=== PATIENT | female | born 1960 | race Caucasian/White ===

== ENCOUNTER 2016-08-25 10:27 | Emergency (ER) | payer OTHER ==
[~2016-08-25] VITALS: Ht 170.2 cm; Wt 58.1 kg
--- NOTE | 2016-08-25 11:16 | ED HEADACHE COMPLAINT ---
History of Present Illness General Chief Complaint: Headache Stated Complaint: HEADACHE Source: patient, old records Exam Limitations: no limitations Vital Signs & Intake/Output Vital Signs & Intake/Output Vital Signs Date Time Temp Pulse Resp B/P Pulse O2 O2 Flow FiO2 Ox Delivery Rate 08/25 1245 Room Air Room Air 08/25 1236 97.7 60 18 132/81 99 Room Air 08/25 1032 97.1 78 16 146/86 100 Room Air Allergies Coded Allergies: Penicillins (UNKNOWN 08/25/16) Reconcile Medications Mometasone Furoate (Nasonex) 50 MCG SPRAY.PUMP 2 SPRAY NASB DAILY SINUSITIS Triage Note: PT STATES SHE WAS ON HER INVERSTION TABLE AND SHE SUDDENLY GOT A SENSATION AND PAIN INTO HER FH AND IN HER EYES. PT STATES SHE HAS NEVER HAD ANYTHING LIKE THAT BEFORE. PT STATES SHE STILL HAS TINGLING OVER HER RIGHT EYE. Triage Nurses Notes Reviewed? yes Onset: Abrupt Duration: hour(s): (1), better, intermittent, waxing and waning Timing: recent history Quality/Severity: moderate, achy Severity Numbers: 4 Head Injury Location: frontal No Modifying Factors: none Associated Symptoms: DENIES HPI: 55-year-old female with no medical history presents complaining of a sudden onset of a 9 out of 10 frontal headache that is radiating behind her right eye that came on after she was lying inverted on her inversion table for a few minutes earlier today. She states that she has uses before without developing similar headaches. There is been no recent fall or head trauma or loss of consciousness. She denies any vision changes photophobia diplopia. No fever no chills no change in her mental status no neck or back pain. She is not taken anything for her headache which she states has since improved and is now 4 out of 10 aching and is more localized above her right eye. She denies any chest pain shortness of breath. She called her primary care physician who advised her to come to the ER. No change in her mental status per family Past History Travel History Traveled to [place] past 21 day No Medical History Any Pertinent Medical History? none Surgical History Surgical History: none Psychosocial History What is your primary language [place] Tobacco Use: Never used ETOH Use: occasional use Illicit Drug Use: denies illicit drug use Family History Hx Contributory? No Review of Systems Review of Systems Constitutional: Reports: see HPI. All Other Systems: Reviewed and Negative Comments Review of systems: See HPI, All other systems negative. Constitutional, no chills no fever, no malaise HEENT: No visual changes no sore throat no congestion, no ear pain Cardiovascular: No chest pain , no palpitation Skin, no jaundice no rashes, no change in skin Respiratory: No dyspnea no cough no sputum no hemoptysis GI: No nausea no vomiting, no diarrhea, : No dysuria Muscle skeletal: No joint pain, no joint swelling, no back pain, no neck pain, Neurologic: No numbness no confusion, headache Psych: No stress no anxiety . Heme/endocrine: No bruising no bleeding Immunology: No lymphadenopathy, Physical Exam Physical Exam General Appearance: well developed/nourished, no apparent distress, alert, awake Cranial Nerves: normal hearing, normal speech, PERRL Comments: Well-developed well-nourished person in no acute distress Head/Face: Atraumatic, no maxillary/frontal sinus tenderness, no facial swelling Eyes: PERRL, EOMI, no conjunctival injection. No nystagmus no papilledema no entrapment Ear:External auditory canal and Tympanic membranes clear Nose: atraumatic.Normal inspection Throat: Moist mucous membranes.Pharynx normal. No pharyngeal erythema/exudate seen. No stridor/drooling or assymetry. No swelling or edema. Neck: Supple, no lymphadenopathy, FROM no bruit Back: Nontender, no CVA tenderness. Full range of motion Cardiovascular: Regular rate and rhythms no murmurs rubs Respiratory: Chest nontender.There were no bony deformities, no asymmetry. No respiratory distress. Patient speaking in full complete sentences. Breath sounds clear to auscultation bilaterally: NO W/R/R Abdomen: Soft, nontender nondistended Extremity: No edema, full range of motion of extremities, 5 out of 5 strength noted to bilateral upper and lower extremities Neuro: Alert oriented x3, motor sensory normal, cranial nerves II through XII grossly intact. There were no obvious focal neurologic abnormalities. Skin: No appreciable rash on exposed skin, skin is warm and dry. Psych: Mood and affect is normal, memory and judgment is normal. Core Measures Severe Sepsis Present: No Septic Shock Present: No Progress Differential Diagnosis: carotid dissection, cluster LORENZO, IC mass/tumor, meningitis, migraine LORENZO, musculoskeletal pain, sinusitis, subarach. Hem., tension LORENZO, temporal arteritis, HYPERTENSIVE URGENCY VERSUS EMERGENCY Plan of Care: Current Medications Sig/Dianne Start time Last Medication Dose Stop Time Status Admin Acetaminophen 650 MG ONCE ONE 08/25 1230 UNVr (Tylenol) 08/25 1231 Patient declining any fever pain when offered CAT scan ordered On repeat evaluation patient reports she is having intermittent episodes of similar symptoms medicated with Tylenol 650 by mouth I discussed with the patient at length all of their results. I had an extensive conversation regarding need for close follow up with their primary care physician this week as well as return precautions. I answered all of their questions, they feel comfortable with the plan and follow-up care. I discussed the medications that they will receive with the patient. I gave them signs and symptoms that could indicate an adverse reaction. I have advised them to limit their activities until they can see how they respond to the medication. (МАРИЯ JEAN-BAPTISTE,ANGELICA) Diagnostic Imaging: Viewed by Me: CT Scan. Discussed w/RAD: CT Scan. Radiology Impression: PATIENT: DAVID TIDWELL PRESENT AGE: 55 PATIENT ACCOUNT NO: [id number] : 62 LOCATION: [facility] ORDERING PHYSICIAN: ANGELICA JEAN-BAPTISTE SERVICE DATE: 08/25/16 EXAM TYPE: CAT - CT HEAD WO IV CONTRAST EXAMINATION: CT HEAD WITHOUT CONTRAST CLINICAL INFORMATION: Sudden severe headache. Assess for subarachnoid hemorrhage. COMPARISON: None. TECHNIQUE: Contiguous axial imaging was performed from the skull base to vertex without intravenous administration of contrast. DLP: 600.71 mGy-cm FINDINGS: There is no evidence of acute intracranial hemorrhage or territorial infarction. No abnormal mass effect or midline shift is seen. Roman to white matter differentiation is well preserved. No extra-axial fluid collections are identified. The ventricles are normal in size. There is no abnormal attenuation within the brain parenchyma. The osseous structures and soft tissues are normal. The mastoid air cells are well-aerated. There is significant opacification of the right frontal sinus. IMPRESSION: 1. There are no acute bleeds or territorial infarcts. 2. There is significant opacification of the right frontal sinus. DICTATED BY: YOJANA MEADOWS MD DATE/TIME DICTATED:1212 MEDICAL ASSISTANT INSTRUCTOR:ALVARO DATE/TIME TRANSCRIBED:08/25/161212 CONFIDENTIAL, DO NOT COPY WITHOUT APPROPRIATE AUTHORIZATION. <Electronically signed in Other Vendor System> SIGNED BY: YOJANA MEADOWS MD 08/25/16 1217 Departure Departure Time of Disposition: 1225 Disposition: HOME OR SELF CARE Condition: Stable Clinical Impression Primary Impression: Headache Referrals: JAMES MOORE,CHRISTOFER De Los Santos (PCP/Family) Additional Instructions: tylenol or motrin as needed for pain. rest, refrain from using your inversion table for a few days. follow up with your pmd next week. return to the ER with any concerns. Nasonex as directed- this was sent to [facility] Departure Forms: Customer Survey General Discharge Information Prescriptions: Current Visit Scripts Mometasone Furoate (Nasonex) 2 SPRAY NASB DAILY #1 INHAL
--- NOTE | 2016-08-25 12:17 | CT SCAN REPORT ---
EXAMINATION: CT HEAD WITHOUT CONTRAST CLINICAL INFORMATION: Sudden severe headache. Assess for subarachnoid hemorrhage. COMPARISON: None. TECHNIQUE: Contiguous axial imaging was performed from the skull base to vertex without intravenous administration of contrast. DLP: 600.71 mGy-cm FINDINGS: There is no evidence of acute intracranial hemorrhage or territorial infarction. No abnormal mass effect or midline shift is seen. Roman to white matter differentiation is well preserved. No extra-axial fluid collections are identified. The ventricles are normal in size. There is no abnormal attenuation within the brain parenchyma. The osseous structures and soft tissues are normal. The mastoid air cells are well-aerated. There is significant opacification of the right frontal sinus. IMPRESSION: 1. There are no acute bleeds or territorial infarcts. 2. There is significant opacification of the right frontal sinus.
[2016-08-25] MEDS ORDERED: NASONEX17 GM NASB (12:26)
[2016-08-25 12:36] VITALS: BP 132/81
== END 2016-08-25 12:46 ==
LOC: ERH 10:27
DX: R51 Headache (principal)